=== PATIENT | male | born 1980 | race Caucasian/White ===

== ENCOUNTER 2016-09-22 16:16 | Emergency (ER) | payer SELFPAY ==
[~2016-09-22] VITALS: Ht 165.1 cm; Wt 61.2 kg
[~2016-09-22 16:16] MED LIST: DILAUDID2 MG PO; KEFLEX500 MG PO; SILVADENE,SSD C50 GM T; VICODIN 5/500 505 MG PO
[2016-09-22] MEDS ORDERED: CEPHALEXIN500 M1 PO (17:18)
== END 2016-09-22 17:21 | disposition home or self-care (01) ==
LOC: ED 16:16
DX: S51.812A Laceration without foreign body of left forearm, initial encounter (principal); F17.200 Nicotine dependence, unspecified, uncomplicated; Z88.6 Allergy status to analgesic agent; Z29.12 Encounter for prophylactic antivenin; W26.0XXA Contact with knife, initial encounter; Y93.89 Activity, other specified; Y92.89 Other specified places as the place of occurrence of the external cause; Y99.8 Other external cause status

== ENCOUNTER 2017-10-24 19:20 | Emergency (ER) | payer SELFPAY ==
[~2017-10-24] VITALS: Ht 167.6 cm; Wt 61.2 kg
[~2017-10-24 19:20] MED LIST changes: +CEPHALEXIN500 M1 PO
[2017-10-24] MEDS ORDERED: CEPHALEXIN500 M1 PO (19:59)
== END 2017-10-24 20:53 | disposition home or self-care (01) ==
LOC: ED 19:20
DX: S60.450A Superficial foreign body of right index finger, initial encounter (principal); Z88.5 Allergy status to narcotic agent; Z98.890 Other specified postprocedural states; W45.8XXA Other foreign body or object entering through skin, initial encounter; Y93.89 Activity, other specified; Y92.89 Other specified places as the place of occurrence of the external cause; Y99.8 Other external cause status

== ENCOUNTER 2024-01-06 17:11 | Emergency (ER) | payer SELFPAY ==
[~2024-01-06] VITALS: Ht 167.6 cm; Wt 63.5 kg
[2024-01-06] MEDS ORDERED: Acetaminophen/Oxycodone 5 MG/325 MG TABLET PO ONE (17:55)
[2024-01-06] MEDS ORDERED: NAPROSYN500 MG PO (20:08)
== END 2024-01-06 20:24 | disposition home or self-care (01) ==
LOC: ED 17:11
DX: S40.012A Contusion of left shoulder, initial encounter (principal); S60.212A Contusion of left wrist, initial encounter; S80.212A Abrasion, left knee, initial encounter; Z98.890 Other specified postprocedural states; Z90.89 Acquired absence of other organs; Z87.891 Personal history of nicotine dependence; W22.8XXA Striking against or struck by other objects, initial encounter; Y93.89 Activity, other specified; Y92.89 Other specified places as the place of occurrence of the external cause; Y99.8 Other external cause status